=== PATIENT | female | born 1935 | race Caucasian/White ===

== ENCOUNTER 2019-08-08 14:44 | Inpatient (IN) ==
[2019-08-08] MEDS ORDERED: PHENERGAN IV PRN (15:04)
--- NOTE | 2019-08-08 16:54 | Diag Imaging Result Doc PS360 ---
CHEST-2 VIEWS - 08/08/2019 INDICATION: SOB COMPARISON: 05/03/2018 FINDINGS: The lungs are clear. Heart size is normal. No pneumothorax or pleural effusion. IMPRESSION: Negative exam. Electronically signed by Charanjit Britt 08/08/2019 4:52 PM
[2019-08-08] MEDS: NS 1,000 ML IV SCH (17:37)
[2019-08-08] MEDS: LEVAQUIN 500 MG/D5W 500 MG/100 ML IVPB IV SCH (17:40)
[2019-08-08] MEDS: PROTONIX IV SCH (17:41)
[2019-08-08] MEDS: HUMULIN R SUBQ SCH ×2 (17:53→21:07)
[2019-08-08 18:03] LABS: BASO# 0.05 X1000 (0.0-0.2); BASO% 0.5 % (0.0-0.8); EOS# 0.12 X1000 (0.0-0.7); EOS% 1.1 % (0.0-10.0); HEMATOCRIT 45.4 % (37.0-47.0); HEMOGLOBIN 15.1 g/dL (12.0-16.0); IMM GRAN# 0.03 X1000 (0.0-0.04); IMM GRAN% 0.3 % (0.0-0.5); LYMPH% 21.9 % (20.5-51.1); MCH 29.4 PG (27-31); MCHC 33.3 g/dL (33-37); MCV 88.3 FL (81-99); MONO% 7.6 % (1.7-9.3); MPV 10.8 FL (7.4-10.4); NEUT# 7.22 X1000 (1.4-6.5); NEUT% 68.6 % (42.2-75.2); PLT 193 X1000 (130-400); RBC 5.14 XMIL (4.2-5.4); RDW 12.6 % (11.5-14.5); WBC 10.52 X1000 (4.8-10.8)
[2019-08-08 18:16] LABS: HEMOGLOBIN A1C 9.4 % (4.8-6.0)
[2019-08-08 18:26] LABS: MAGNESIUM 1.4 mg/dL (1.5-2.7)
[2019-08-08 18:36] LABS: C REACTIVE PROT QUANT 11.08 mg/L (0.00-5.00)
[2019-08-08 18:42] LABS: CALCIUM 9.7 mg/dL (8.8-10.2); CREATININE 1.1 mg/dL (0.5-0.9); POTASSIUM 3.9 mmol/L (3.5-5.1)
[2019-08-08] MEDS ORDERED: MAGNESIUM SULFATE 2 GM/S.W.I. 2 GM/50 ML IVPB IV ONE (19:05)
[2019-08-08] MEDS ORDERED: HUMULIN R SUBQ SCH (21:00)
[2019-08-08] MEDS ORDERED: INSULIN PEN NEEDLES ONE (21:01)
[2019-08-08] MEDS: TRESIBA FLEXTOUCH U-100 SUBQ SCH (21:06)
[2019-08-08] MEDS: LOVENOX SUBQ SCH (21:07)
--- NOTE | 2019-08-08 21:15 | HISTORY AND PHYSICAL ---
CHIEF COMPLAINT: Stomach flu, UTI symptoms, lower abdominal pain, uncontrolled sugar. HISTORY OF PRESENT ILLNESS: This is an 83-year-old white female, just returned from [place] for Thanksgiving. On the way, she had some stomach flu and lower abdominal pain. Came to our clinic today and was found to have UTI, dehydration, and blood sugar 500. Basically admitted to the hospital, IV antibiotics, IV fluids. No fever. Decrease in nausea for the last 2 days. PAST MEDICAL HISTORY: 1. History of gallstones. 2. Type 2 diabetes. 3. Hypertension. 4. Glaucoma. 5. Gout. 6. Hyperlipidemia. 7. Kidney stone on the right side. 8. Nonalcoholic steatohepatitis. 9. Peptic ulcer disease. 10. Sialoadenitis. 11. Bilateral parotitis. 12. Small bowel obstruction due to adhesion. PAST SURGICAL HISTORY: 1. Thyroidectomy. 2. Hysterectomy. 3. Total knee arthroplasty on the right side. 4. Left hip replacement, May 2018. MEDICATIONS: 1. Singulair 10 mg daily. 2. Celexa 40 daily. 3. Prilosec 40 daily. 4. Latanoprost 1 drop daily. 5. Multivitamin 1 tablet daily. 6. Metformin 1000 daily. 7. Tresiba 20 units at bedtime. 8. Cozaar 50 daily. 9. Timoptic 1 drop right eye daily. 10. Icar C Plus 1 tablet daily. 11. Celebrex 200 daily. 12. Colace 100 p.o. b.i.d. 13. Xarelto 10 daily. ALLERGIES: Penicillin and latex. SOCIAL HISTORY: , 1 child. No smoking. No alcohol. FAMILY HISTORY: Father of [place] at 75. Mother of hip surgery complications. HEALTH MAINTENANCE: 1. Last mammography October 2016. 2. Colonoscopy [address] Anaya, dilated stricture. REVIEW OF SYSTEMS: HEENT: No headache. No vision problem. No earache. No sore throat. Neck: No goiter. No lymphadenopathy. No bruit. Cardiopulmonary: No chest pain, shortness of breath, PND, orthopnea. Gastrointestinal: Lower abdominal cramps, resolving. No constipation, diarrhea, or bleeding per rectum. : No history of hesitancy, frequency, dysuria. Extremities: No swelling of legs. No joint pain. Neurologic: No focal symptoms or weakness. PHYSICAL EXAMINATION: VITAL SIGNS: Temperature is 97.3 degrees, pulse is 103, blood pressure is 126/80. Height 5 feet 6 inches. Weight 157 pounds. HEENT: Atraumatic, normocephalic. Pupils equal, reacting to light. TMs are jaime. Nose and throat within normal limits. NECK: Supple. No lymphadenopathy. No goiter. CHEST: Bilateral air entry. HEART: Sounds are regular. ABDOMEN: Belly is soft and diffusely tender. No signs of peritonitis. NEUROLOGIC: No neurological deficits. INVESTIGATIONS: In my office, urine dipstick positive for infection. Blood sugar was more than 500. CBC: White cell count 10, hematocrit 45, platelets 193,000. Sodium 136, potassium 3.9, chloride 89, BUN 22, creatinine 1.9, glucose 423, A1c 9.4. Cardiac enzymes and troponin were negative. ASSESSMENT AND PLAN: An 83-year-old white male admitted to the hospital: 1. Urinary tract infection. Intravenous Levaquin. 2. Dehydration with hyperglycemia. Intravenous fluids, insulin, clear liquids. 3. Deep venous thrombosis and gastrointestinal prophylaxis with Lovenox and proton pump inhibitor. 4. Repeat the labs in the morning and follow up on the pending labs. 5. Slowly reconcile home medications. 6. Initiate vaccination protocol prior to the discharge. cc: Flo Martinez MD
[2019-08-09 07:33] LABS: CALCIUM 8.9 mg/dL (8.8-10.2); POTASSIUM 3.5 mmol/L (3.5-5.1)
[2019-08-09] MEDS ORDERED: PRILOSEC PO SCH (09:00)
[2019-08-09] MEDS: XALATAN 0.005% OPH SOLN BOTH EYES SCH (10:00)
[2019-08-09] MEDS: HUMULIN R SUBQ SCH ×3 (12:48→20:38)
[2019-08-09] MEDS: LEVAQUIN 500 MG/D5W 500 MG/100 ML IVPB IV SCH (16:31)
[2019-08-09] MEDS: PROTONIX IV SCH (16:32)
[2019-08-09] MEDS: NS 1,000 ML IV SCH ×3 (17:57→20:38)
[2019-08-09] MEDS: LOVENOX SUBQ SCH (20:36)
[2019-08-09] MEDS: TRESIBA FLEXTOUCH U-100 SUBQ SCH (20:38)
--- NOTE | 2019-08-10 00:44 | PROGRESS NOTE ---
DATE: 08/09/2019 SUBJECTIVE: The patient has decreased nausea, abdominal cramps. Slight dysuria. REVIEW OF SYSTEMS: Otherwise none reported. OBJECTIVE: On exam, temperature 97 degrees, pulse 89, blood pressure is stable. HEENT exam within normal limits. Neck is supple. No lymphadenopathy. Chest is clear. Heart sounds are regular. Belly is soft. No signs of peritonitis. LABORATORY DATA: SMA 7: Sodium 138, potassium 3.5, anion gap is 15, BUN 18, creatinine 1.0, glucose 317, calcium 8.9. ASSESSMENT: 1. Gastroenteritis. 2. Hyperglycemic, impending diabetic ketoacidosis. 3. Possible urinary tract infection. PLAN OF CARE: IV fluids and DVT prophylaxis with Lovenox. For UTI on IV Levaquin. Hypomagnesemia; given magnesium. We will check the labs in the morning and slowly advance the diet over the weekend, slowly restart her home medications. Repeat the electrolytes in the morning. Level of documentation 25 minutes. cc: Flo Martinez MD
[2019-08-10] MEDS: TYLENOL PO PRN (01:01)
[2019-08-10] MEDS: HUMULIN R SUBQ SCH ×5 (06:08→21:27)
[2019-08-10] MEDS: NS 1,000 ML IV SCH ×3 (06:37→21:24)
[2019-08-10 07:27] LABS: AGAP 11; BUN 13 mg/dL (8-22); CHLORIDE 102 mmol/L (98-107); COSMO 277; CREATININE 0.8 mg/dL (0.5-0.9); ESTIMATED GFR > 60; GLUCOSE 123 mg/dL (70-104); MAGNESIUM 1.6 mg/dL (1.5-2.7); PHOSPHORUS 3.5 mg/dL (2.7-4.5); POTASSIUM 3.4 mmol/L (3.5-5.1); SODIUM 138 mmol/L (136-145); TCO2 25 mmol/L (25-35)
[2019-08-10] MEDS: THERA M PLUS PO SCH (09:15)
[2019-08-10] MEDS: XALATAN 0.005% OPH SOLN BOTH EYES SCH (09:15)
[2019-08-10] MEDS: TIMOPTIC 0.5% OPH SOLUTION RIGHT EYE SCH ×2 (09:15→09:31)
[2019-08-10] MEDS: KLOR-CON PO SCH (12:11)
[2019-08-10] MEDS: PROTONIX IV SCH (16:25)
[2019-08-10] MEDS: SODIUM CHLORIDE 0.9% INJ SCH (16:26)
[2019-08-10] MEDS: LEVAQUIN 500 MG/D5W 500 MG/100 ML IVPB IV SCH (16:28)
--- NOTE | 2019-08-10 19:22 | PROGRESS NOTE ---
DATE: 08/10/2019 SUBJECTIVE: An 83-year-old white female patient admitted with nausea, abdominal pain, and weakness. Patient found to have a UTI, dehydration and uncontrolled diabetes. Her blood sugar was 500. The patient also had hypomagnesemia and hypokalemia. The patient does have multiple medical problems. The patient is getting IV antibiotics and IV hydration. Her oral intake is still poor. The patient is on a clear liquid diet. She denies any chest pain or palpitations. No diarrhea, blood or mucus in the stool. Denies abdominal pain. Her admission history and physical noted, past medical history and medication reviewed. PHYSICAL EXAMINATION: Vital signs: Blood pressure 135/62, pulse 92, respirations 18, temperature 98.9. Skin: Senile turgor. Neck: Supple. No JVD, thyromegaly or lymphadenopathy. Chest: Bibasilar crepitations. Heart: S1 and S2 heard. Abdomen: Soft, globular. Bowel sounds present. Extremities: No cyanosis, clubbing. No acute DVT. REAL ESTATE ATTORNEY: Alert, awake, able to move all 4 limbs. CONSIDERATIONS: Patient admitted with gastroenteritis, uncontrolled diabetes mellitus, possible urinary tract infection. Overall, the patient is doing better. I am going to advance her diet to a full liquid diet. Supplement potassium. Out of bed to chair. If clinical condition permits, we will plan on discharging patient home soon. PLAN: Overall plan discussed with the patient, and she is in agreement. The patient also had hypokalemia. Will check appropriate labs tomorrow. Her magnesium was 1.6. cc: MD Flo Silva MD
[2019-08-10] MEDS: TRESIBA FLEXTOUCH U-100 SUBQ SCH (21:27)
[2019-08-10] MEDS: LOVENOX SUBQ SCH (21:28)
[2019-08-11] MEDS: HUMULIN R SUBQ SCH ×4 (06:20→21:23)
[2019-08-11 07:23] LABS: BASO# 0.03 X1000 (0.0-0.2); BASO% 0.5 % (0.0-0.8); EOS# 0.17 X1000 (0.0-0.7); EOS% 2.8 % (0.0-10.0); HEMATOCRIT 38.5 % (37.0-47.0); HEMOGLOBIN 12.7 g/dL (12.0-16.0); IMM GRAN# 0.03 X1000 (0.0-0.04); IMM GRAN% 0.5 % (0.0-0.5); LYMPH# 1.75 X1000 (1.2-3.4); LYMPH% 29.3 % (20.5-51.1); MCH 29.9 PG (27-31); MCV 90.6 FL (81-99); MONO# 0.46 X1000 (0.11-0.59); MONO% 7.7 % (1.7-9.3); NEUT# 3.53 X1000 (1.4-6.5); NEUT% 59.2 % (42.2-75.2); PLT 134 X1000 (130-400); RBC 4.25 XMIL (4.2-5.4); RDW 12.4 % (11.5-14.5); WBC 5.97 X1000 (4.8-10.8)
[2019-08-11 07:43] LABS: ALB/GLOB RATIO 0.8; ALBUMIN 2.8 g/dL (3.5-5.0); CALCIUM 8.8 mg/dL (8.8-10.2); CREATININE 0.9 mg/dL (0.5-0.9); MAGNESIUM 1.3 mg/dL (1.5-2.7); POTASSIUM 3.4 mmol/L (3.5-5.1); TOTAL BILIRUBIN 0.55 mg/dL (0.20-1.00); TOTAL PROTEIN 6.3 g/dL (6.3-8.3)
[2019-08-11] MEDS: KLOR-CON PO SCH (10:43)
[2019-08-11] MEDS: THERA M PLUS PO SCH (10:43)
[2019-08-11] MEDS: TIMOPTIC 0.5% OPH SOLUTION RIGHT EYE SCH (10:43)
[2019-08-11] MEDS: XALATAN 0.005% OPH SOLN BOTH EYES SCH (10:44)
[2019-08-11] MEDS: TYLENOL PO PRN (10:47)
[2019-08-11] MEDS ORDERED: MAGNESIUM SULFATE 2 GM/S.W.I. 2 GM/50 ML IVPB IV ONE (10:56)
[2019-08-11] MEDS ORDERED: KLOR-CON PO ONE (10:57)
--- NOTE | 2019-08-11 11:47 | PROGRESS NOTE ---
DATE: 08/11/2019 SUBJECTIVE: Ms. Pederson is doing some better today. Oral intake seems to be improving. No nausea or vomiting. No high-grade fever or chills. Denied any dysuria. Blood sugar is improving. No chest pain or palpitations. OBJECTIVE: Her vital signs noted. Neck is supple. No JVD. Lungs: Bilateral good air entry present. CVS: S1 and S2 heard. Abdomen: Soft, globular. Bowel sounds present. INDUSTRIAL WELDER: Alert, awake. Able to move all 4 limbs. Laboratory Data: Revealed hypokalemia. Patient admitted with gastroenteritis, clinically improving. The patient does have hypokalemia. Uncontrolled diabetes mellitus seems to be getting better. Urinary tract infection, osteoarthritis. Labs and medication noted. Overall plan discussed with the patient. I am going to give her an extra dose of potassium today. Continue rest of the treatment and close observation. Fall precaution. cc: MD Flo Silva MD
[2019-08-11 12:04] LABS: URINE SOURCE CLEAN CATCH
[2019-08-11 12:09] LABS: BILIRUBIN URINE NEGATIVE (NEGATIVE); BLOOD URINE NEGATIVE (NEGATIVE); COLOR YELLOW; GLUCOSE URINE 150 mg/dL (NEGATIVE); KETONE URINE NEGATIVE (NEGATIVE); LEUKOCYTES URINE NEGATIVE (NEGATIVE); NITRITE URINE NEGATIVE (NEGATIVE); PROTEIN URINE NEGATIVE (NEGATIVE); SP GRAVITY URINE 1.007; TURBIDITY URINE CLEAR (CLEAR); UR EPITHELIAL CELLS <10 /HPF (<10); URINE BACTERIA NEGATIVE /HPF; URINE RBC <10 /HPF (<10); URINE WBC <10 /HPF (<10); UROBILINOGEN URINE NORMAL (NORMAL)
[2019-08-11] MEDS: NS 1,000 ML IV SCH (15:30)
[2019-08-11] MEDS: LEVAQUIN 500 MG/D5W 500 MG/100 ML IVPB IV SCH (16:24)
[2019-08-11] MEDS: SODIUM CHLORIDE 0.9% INJ SCH (16:26)
[2019-08-11] MEDS: PROTONIX IV SCH (16:26)
[2019-08-11] MEDS: TRESIBA FLEXTOUCH U-100 SUBQ SCH (21:24)
[2019-08-11] MEDS: LOVENOX SUBQ SCH (21:25)
[2019-08-12] MEDS: NS 1,000 ML IV SCH (02:48)
[2019-08-12] MEDS: TYLENOL PO PRN (02:52)
[2019-08-12] MEDS: HUMULIN R SUBQ SCH (06:25)
[2019-08-12 07:53] LABS: CALCIUM 9.7 mg/dL (8.8-10.2); CREATININE 0.9 mg/dL (0.5-0.9); MAGNESIUM 1.7 mg/dL (1.5-2.7); POTASSIUM 3.9 mmol/L (3.5-5.1)
[2019-08-12 07:57] VITALS: BP 138/66
[2019-08-12] MEDS ORDERED: PREVNAR 13 IM ONE (08:37)
[2019-08-12] MEDS ORDERED: PNEUMOVAX 23 IM ONE (09:04)
[2019-08-12] MEDS: KLOR-CON PO SCH (09:43)
[2019-08-12] MEDS: THERA M PLUS PO SCH (09:43)
[2019-08-12] MEDS: XALATAN 0.005% OPH SOLN BOTH EYES SCH (09:44)
[2019-08-12] MEDS: TIMOPTIC 0.5% OPH SOLUTION RIGHT EYE SCH (09:44)
--- NOTE | 2019-08-13 18:39 | DISCHARGE SUMMARY ---
ADMISSION DATE: 08/08/2019 DISCHARGE DATE: 08/12/2019 DISCHARGING DIAGNOSES: 1. Diabetic ketoacidosis. 2. Urinary tract infection. 3. Glaucoma. 4. Hypertension. 5. Type 2 diabetes. 6. History of gallstones. 7. Gout. 8. Hyperlipidemia. 9. Kidney stone on the right side. 10. Nonalcoholic steatohepatitis. 11. Acid reflux disease. 12. Bilateral parotitis. BRIEF HISTORY: Please see the H and P that was done on 08/08/2019. In brief, she is an 83-year- old white female recently came back from [place] after a Thanksgiving trip with nausea, vomiting, diarrhea, followed by UTI symptoms and confusion. The patient was found to have a blood sugar of 500 with urine dipstick positive for infection. HOSPITAL COURSE: The patient was given IV fluids, control of the blood sugar, IV Levaquin. Follow up electrolytes, low potassium, magnesium, phosphate were replaced. At the time of discharge patient is stable. LABS: CBC: White cell count 5.9, hematocrit 38, platelets 134,000. Sodium 142, potassium 3.9, chloride 105, BUN 5, creatinine 0.9, glucose 117, phosphorus 4.0, magnesium 1.7. LFTs were normal. B12 1,732. A1c 9.4. Urinalysis is clear. DISCHARGE MEDICATIONS: Pneumococcal 13 was given 08/12/2019. Singulair 10 mg daily, Celexa 40 daily, Prilosec 40 daily, latanoprost 1 drop daily, multivitamin 1 tablet daily, metformin 1000 daily, Tresiba 20 units at bedtime, Cozaar 50 daily, timolol eye drops one drop daily, Icar C Plus 1 tablet daily, Celebrex 200 mg daily, Colace 100 p.o. b.i.d. DISCHARGE INSTRUCTIONS: Control the blood sugar. Follow up in my office in 10 days. cc: Flo Martinez MD
== END 2019-08-12 10:11 | disposition home or self-care (01) | DRG 638 ==
LOC: DIRADM 14:44 → EDIPHOLD 15:47 → 3N 17:08
PROVIDERS: ADMIT Internal Medicine; ATTEND Internal Medicine